=== PATIENT | male | born 1995 | race African-American/Black ===

== ENCOUNTER 2016-10-10 11:44 | Emergency (ER) | payer SELFPAY ==
[2016-10-10 12:01] VITALS: BP 128/77
--- NOTE | 2016-10-10 12:01 | ER Document Report ---
HPI - HPI Patient complains to provider of: Needs treatment for chlamydia Quality of pain: No pain Pain Level: Denies Context: 21-year-old asymptomatic male is here with his sexual partner who had positive chlamydia found on October 08. She has not picked up her prescription from the pharmacy yet. They want to be treated the same. She gave me permission to access her medical record to find out what was called in for her. Associated Symptoms: None Exacerbated by: Denies Relieved by: Denies Similar symptoms previously: No Recently seen / treated by doctor: No - ROS ROS below otherwise negative: Yes Systems Reviewed and Negative: Yes All other systems reviewed and negative - DERM Skin Color: Normal Past Medical History - General Information source: Patient - Social History Smoking Status: Current Every Day Smoker Frequency of alcohol use: Occasional Drug Abuse: Marijuana Lives with: Spouse/Significant other Family History: None Patient has suicidal ideation: No Patient has homicidal ideation: No - Medical History Medical History: Negative Renal/ Medical History: Denies: Hx Peritoneal Dialysis Surgical Hx: Negative Vertical Provider Document - CONSTITUTIONAL Agree With Documented VS: Yes Exam Limitations: No Limitations - INFECTION CONTROL TRAVEL OUTSIDE OF THE [place] IN LAST 30 DAYS: No - HEENT HEENT: Normocephalic - NECK Neck: Supple - RESPIRATORY Respiratory: Breath Sounds Normal, No Respiratory Distress - CARDIOVASCULAR Cardiovascular: Regular Rate, Regular Rhythm - GI/ABDOMEN Gastrointestinal: Abdomen Soft, Abdomen Non-Tender, No Organomegaly Discharge - Discharge Clinical Impression: Chlamydia treatment Condition: Good Disposition: HOME, SELF-CARE Instructions: Chlamydia ([facility]), Azithromycin ([facility]) Additional Instructions: see health department for test of cure with partner in 2 weeks no sex until then to er any concerns Please complete the patient satisfaction survey if you get one, and return it.. If you do not receive a survey, then you can go to the [facility] website, [email or web address] and place your comments about your very good care. Thank you very much. It was a pleasure being your medical provider today.
[2016-10-10] MEDS ORDERED: AZITHROMYCIN 250 MG TABLET PO ONE (12:13)
[2016-10-10] MEDS ORDERED: ONDANSETRON 4 MG TAB.RAPDIS PO ONE (12:13)
== END 2016-10-10 12:42 | disposition home or self-care (01) ==
LOC: ER 11:44
DX: Z20.2 Contact with and (suspected) exposure to infections with a predominantly sexual mode of transmission (principal); F17.200 Nicotine dependence, unspecified, uncomplicated
CPT/HCPCS: 99283; S0119